=== PATIENT | female | born 1960 | race Caucasian/White ===

== ENCOUNTER 2018-08-30 07:36 | Outpatient (CLI) | payer BC ==
--- NOTE | 2018-08-30 09:47 | CT ---
CT ANGIOGRAM HEAD: COMPARISON: 01/17/2015, 02/19/2011, 02/29/2008 TECHNIQUE: CT angiogram head is performed in the axial plane. Three-dimensional reformatted images are submitte d for interpretation. FINDINGS: On noncontrast head CT, there is a stable aneurysm clip and stable malacic change involving the anter ior-inferior left frontal lobe. The remainder of the cerebrum demonstrates preservation of cortical dsouza white matter differential. A partially empty sella is noted. The basilar cisterns are patent. No midline shift. Post surgical changes of the left calvarium. Adequate aeration of the mastoid air cells. There is a significant opacification of the right maxillary sinus, likely due to a large mucus retention cyst. Partial opacification of the bilateral ethmoid air cells. On post contrast head CT, no pathologic enhancement of the brain parenchyma. On CT angiogram of the head, the distal cervical and intracranial internal carotid arteries have appr opriate enhancement and luminal diameter. Anterior circulation demonstrates symmetric enhancement and luminal diameter of the A1 and M1 segment s, as well as the proximal A2 segments and MCA branches. An aneurysm clip, associated with an ACom a neurysm, is appropriately positioned and unchanged. No evidence of residual aneurysm. Posterior circulation demonstrates codominant vertebral arteries identified. Both PICA origins are u nremarkable. The basilar artery and the left and right P1 segments have appropriate enhancement and luminal diameter. IMPRESSION: 1. No evidence of vascular occlusion or aneurysm in the anterior or posterior circulation. 2. 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 POS: [facility]
== END 2018-08-30 07:37 | disposition home or self-care (01) ==
LOC: BICCT 07:36
PROVIDERS: ATTEND Family Medicine
DX: I72.9 Aneurysm of unspecified site (principal)
CPT/HCPCS: 70496

== ENCOUNTER 2018-09-06 08:08 | Outpatient (CLI) | payer BC ==
--- NOTE | 2018-09-06 08:39 | BD ---
Exam: DEXA Bone Density History: Post-menopausal. Lumbar Spine: BMD (g/cm2) L1 0.753 T-Score: -2.2 L2 0.762 T-Score: -2.4 L3 0.728 T-Score: -3.2 L4 0.766 T-Score: -2.7 L1-L4 0.752 T-Score: -2.7 Femoral Neck: 0.700 T-Score: -1.3 Total Femur: 0.922 T-Score: -0.2 Impression: Osteopenia of the left femoral neck and osteoporosis of the lumbar spine. POS: [facility]
== END 2018-09-06 08:09 | disposition home or self-care (01) ==
LOC: BICMAMMO 08:08
PROVIDERS: ATTEND Family Medicine
DX: M81.0 Age-related osteoporosis without current pathological fracture (principal); M85.852 Other specified disorders of bone density and structure, left thigh
CPT/HCPCS: 77080

== ENCOUNTER 2021-02-17 11:41 | Outpatient (CLI) | payer BC | END 2021-02-17 11:42 | disposition home or self-care (01) | LOC: BICMAMMO 11:41 | PROVIDERS: ATTEND Obstetrics & Gynecology | DX: Z12.31 Encounter for screening mammogram for malignant neoplasm of breast (principal) | CPT/HCPCS: 77063; 77067 ==

== ENCOUNTER 2022-01-21 07:47 | Outpatient (CLI) | payer BC ==
[2022-01-21] MEDS ORDERED: Iopamidol 370 76% 100 ML VIAL ONE (11:45)
== END 2022-01-21 07:48 | disposition home or self-care (01) ==
LOC: CT 07:47
PROVIDERS: ATTEND Family Medicine
DX: I67.1 Cerebral aneurysm, nonruptured (principal); G93.89 Other specified disorders of brain
CPT/HCPCS: 70496; 82565; Q9967

== ENCOUNTER 2022-03-03 09:05 | Outpatient (CLI) | payer BC | END 2022-03-03 09:06 | disposition home or self-care (01) | LOC: BICMAMMO 09:05 | PROVIDERS: ATTEND Family Medicine | DX: Z12.31 Encounter for screening mammogram for malignant neoplasm of breast (principal) | CPT/HCPCS: 77063; 77067 ==

== ENCOUNTER 2023-01-13 07:55 | Outpatient (CLI) | payer BC ==
[2023-01-13] MEDS ORDERED: Iopamidol 370 76% 100 ML VIAL ONE (12:35)
== END 2023-01-13 07:56 | disposition home or self-care (01) ==
LOC: CT 07:55
PROVIDERS: ATTEND Family Medicine
DX: I67.1 Cerebral aneurysm, nonruptured (principal)
CPT/HCPCS: 70496

== ENCOUNTER 2023-01-18 09:08 | Outpatient (CLI) | payer BC | END 2023-01-18 09:09 | disposition home or self-care (01) | LOC: BICMAMMO 09:08 | PROVIDERS: ATTEND Family Medicine | DX: Z13.820 Encounter for screening for osteoporosis (principal); M85.88 Other specified disorders of bone density and structure, other site; Z78.0 Asymptomatic menopausal state | CPT/HCPCS: 77080 ==

== ENCOUNTER 2023-04-19 08:37 | Outpatient (CLI) | payer BC | END 2023-04-19 08:38 | disposition home or self-care (01) | LOC: BICMAMMO 08:37 | PROVIDERS: ATTEND Obstetrics & Gynecology | DX: Z12.31 Encounter for screening mammogram for malignant neoplasm of breast (principal) | CPT/HCPCS: 77063; 77067 ==

== ENCOUNTER 2025-04-03 08:43 | Outpatient (CLI) | payer MEDICARE | END 2025-04-03 08:44 | disposition home or self-care (01) | LOC: BICMAMMO 08:43 | PROVIDERS: ATTEND Family Medicine | DX: Z78.0 Asymptomatic menopausal state (principal); M85.89 Other specified disorders of bone density and structure, multiple sites | CPT/HCPCS: 77080 ==